=== PATIENT | female | born 1965 | race African-American/Black ===

== ENCOUNTER 2017-04-20 13:27 | Emergency (ER) | payer BC ==
[2017-04-20 13:58] VITALS: BP 175/88
[2017-04-20] MEDS ORDERED: Sodium Chloride 0.9% 10 ML Syringe FLUSH PRN (14:40)
--- NOTE | 2017-04-20 15:28 | CT ---
Head CT Technique: Multiple axial sections through the brain were obtained. Intravenous contrast was not utilized. Comparison: No prior intracranial imaging. Findings: Ventricles along with basal cisterns and sulci over the convexities are within normal limits for the patient's age. No abnormal parenchymal densities are seen. No evidence of intracranial hemorrhage. No midline shift or mass effect is seen. Bone window settings were reviewed shows the visualized sinuses to appear clear. No acute calvarial abnormality is seen. Impression: 1. Nothing acute is identified on noncontrast head CT study. Diagnostic code #1
--- NOTE | 2017-04-20 17:43 | EDM.PDOC ---
ED HPI GENERAL MEDICAL PROBLEM - General Chief Complaint: Headache Stated Complaint: SYNCOPE/HEADACHE Time Seen by Provider: 04/20/17 14:30 Source of Information: Reports: Patient History Limitations: Reports: No Limitations - History of Present Illness INITIAL COMMENTS - FREE TEXT/NARRATIVE: The patient presents with a headache and some dizziness. That started today. She also had some chest pain today. She got dizzy where the room was spinning and nearly passed out. She denies fever, chills, ear pain, fever, chills, cough , shortness of breath, abdominal pain, nausea or vomiting. Her blood pressure was high today at the clinic. It was 190s systolic. Onset: Gradual Duration: Day(s): Location: Reports: Chest Quality: Reports: Sharp Severity: Moderate Improves with: Reports: None Worsens with: Reports: None Associated Symptoms: Reports: Chest Pain, Headaches. Denies: Shortness of Breath Headache Pain Score (Numeric/FACES): 8 - Related Data Allergies Allergy/AdvReac Type Severity Reaction Status Date / Time carbamazepine [From Tegretol] Allergy Hives Verified 04/20/17 13:51 Home Meds: Home Meds Abacavir/Dolutegravir/Lamivudi [Triumeq Tablet] 1 tab PO DAILY 06/01/16 [History ] Aspirin [Halfprin] 81 mg PO DAILY 06/01/16 [History] atorvaSTATin [Lipitor] 20 mg PO BEDTIME 06/01/16 [History] Meclizine [Antivert] 25 mg PO Q6H PRN #20 tablet 04/20/17 [Rx] Past Medical History Cardiovascular History: Reports: High Cholesterol Neurological History: Reports: Migraines, Seizure Other Neuro History: facial palsy Immunologic History: Reports: HIV - Infectious Disease History Infectious Disease History: Reports: Herpes Social & Family History - Family History Family Medical History: Noncontributory - Tobacco Use Smoking Status *Q: Unknown Ever Smoked Second Hand Smoke Exposure: No - Caffeine Use Caffeine Use: Reports: None - Recreational Drug Use Recreational Drug Use: No ED ROS GENERAL - Review of Systems Review Of Systems: See Below Constitutional: Reports: No Symptoms HEENT: Reports: No Symptoms Respiratory: Reports: No Symptoms Cardiovascular: Reports: Chest Pain Endocrine: Reports: No Symptoms GI/Abdominal: Reports: No Symptoms : Reports: No Symptoms Musculoskeletal: Reports: No Symptoms - Physical Exam Exam: See Below Exam Limited By: No Limitations General Appearance: Alert, No Apparent Distress Ears: Normal External Exam, Normal Canal, Normal TMs Nose: Normal Inspection Throat/Mouth: Normal Inspection Head Exam: Atraumatic, Normocephalic Neck: Normal Inspection Respiratory/Chest: No Respiratory Distress, Lungs Clear, Normal Breath Sounds Cardiovascular: Regular Rate, Rhythm, No Edema, No Murmur GI/Abdominal: Soft, Non-Tender, No Organomegaly, No Mass Neuro Exam (Abbreviated): Alert, Oriented, No Motor/Sensory Deficits EKG INTERPRETATION EKG Date: 04/20/17 Time: 15:18 Rhythm: NSR Rate (Beats/Min): 68 [place]: Normal P-Wave: Present QRS: Normal ST-T: Other (Flipped T waves in the anterior leads) QT: Normal HI/PQ Interval: 1st degree HB Course - Vital Signs Last Recorded V/S: Last Vital Signs Temp 97.4 F 04/20/17 13:53 Pulse 76 04/20/17 13:53 Resp 16 04/20/17 13:53 BP 175/88 H 04/20/17 13:53 Pulse Ox 98 04/20/17 13:53 - Orders/Labs/Meds Orders: Active Orders 24 hr Category Date Time Status Cardiac Monitoring [RC] . DIRECTED Care 04/20/17 14:40 Active EKG Documentation Completion [RC] STAT Care 04/20/17 14:41 Active Peripheral IV Care [RC] . DIRECTED Care 04/20/17 14:41 Active Chest 1V Frontal [CR] Stat Exams 04/20/17 14:41 Taken Sodium Chloride 0.9% [Saline Flush] Med 04/20/17 14:40 Active 10 ml FLUSH ASDIRECTED PRN Peripheral IV Insertion Adult [OM.PC] Stat Oth 04/20/17 14:40 Ordered Medication Orders Sodium Chloride (Saline Flush) 10 ml FLUSH ASDIRECTED PRN PRN Reason: Keep Vein Open Last Admin: 04/20/17 15:09 Dose: 10 ml Labs: Laboratory Tests 04/20/17 04/20/17 04/20/17 Range/Units 15:15 15:15 15:15 WBC 5.52 (3.98-10.04) K/mm3 RBC 4.05 (3.98-5.22) M/mm3 Hgb 13.0 (11.2-15.7) gm/L Hct 39.3 (34.1-44.9) % MCV 97.0 H (79.4-94.8) fl MCH 32.1 (25.6-32.2) pg MCHC 33.1 (32.2-35.5) g/dl RDW Std Deviation 41.1 (36.4-46.3) fL Plt Count 254 (182-369) K/mm3 MPV 9.4 (9.4-12.3) fl Neut % (Auto) 34.2 (34.0-71.1) % Lymph % (Auto) 55.8 H (19.3-51.7) % [place] % (Auto) 8.5 (4.7-12.5) % Eos % (Auto) 1.1 (0.7-5.8) Baso % (Auto) 0.4 (0.1-1.2) % Neut # (Auto) 1.89 (1.56-6.13) K/mm3 Lymph # (Auto) 3.08 (1.18-3.74) K/mm3 [place] # (Auto) 0.47 H (0.24-0.36) K/mm3 Eos # (Auto) 0.06 (0.04-0.36) K/mm3 Baso # (Auto) 0.02 (0.01-0.08) K/mm3 D-Dimer, Quantitative < 0.19 L (0.19-0.59) mg/L Sodium 142 (136-145) mEq/L Potassium 4.1 (3.5-5.1) mEq/L Chloride 107 (98-107) mEq/L Carbon Dioxide 24 (21-32) mEq/L Anion Gap 15.1 H (5-15) BUN 13 (7-18) mg/dL Creatinine 1.0 (0.55-1.02) mg/dL Est Cr Clr Drug Dosing 52.05 mL/min Estimated GFR (MDRD) > 60 (>60) mL/min BUN/Creatinine Ratio 13.0 L (14-18) Glucose 84 (74-106) mg/dL Calcium 9.4 (8.5-10.1) mg/dL Total Bilirubin 0.3 (0.2-1.0) mg/dL AST 25 (15-37) U/L ALT 32 (14-59) U/L Alkaline Phosphatase 77 (46-116) U/L Troponin I < 0.017 (0.00-0.056) ng/mL Total Protein 8.6 H (6.4-8.2) g/dl Albumin 4.1 (3.4-5.0) g/dl Globulin 4.5 gm/dL Albumin/Globulin Ratio 0.9 L (1-2) Meds: Medications Generic Name Dose Route Start Last Admin Trade Name Freq PRN Reason Stop Dose Admin Sodium Chloride 10 ml 04/20/17 14:40 04/20/17 15:09 Saline Flush FLUSH 10 ml ASDIRECTED PRN Administration Keep Vein Open Discontinued Medications Generic Name Dose Route Start Last Admin Trade Name Freq PRN Reason Stop Dose Admin Meclizine HCl 25 mg 04/20/17 14:43 04/20/17 15:09 Antivert PO 04/20/17 14:44 25 mg ONETIME ONE Administration - Re-Assessments/Exams Free Text/Narrative Re-Assessment/Exam: 04/20/17 17:59 I ordered an IV saline lock, antivert 25mg, labs, CXR, and head CT. Her EKG shows a 1st degree HB with some inverted T waves in the anterior leads. Her CXR shows nothing acute. Her head CT looks good. Her CBC and CMP look good. Her troponin is negative. Her D-dimer is negative. She feels better. Her blood pressure is down to normal now. Departure - Departure Time of Disposition: 18:05 Disposition: Home, Self-Care 01 Condition: Good Clinical Impression: Dizziness Chest pain Qualifiers: Chest pain type: unspecified Qualified Code(s): R07.9 - Chest pain, unspecified - Discharge Information Prescriptions: Meclizine [Antivert] 25 mg PO Q6H PRN #20 tablet PRN Reason: Dizziness Referrals: PCP,None [Primary Care Provider] - Forms: ED Department Discharge Additional Instructions: Take the antivert as needed for any dizziness. Have your blood pressure checked by your doctor within 1 week. Please return if you are worse. - My Orders Last 24 Hours: My Active Orders 04/20/17 14:40 Cardiac Monitoring [RC] . DIRECTED Sodium Chloride 0.9% [Saline Flush] 10 ml FLUSH ASDIRECTED PRN Peripheral IV Insertion Adult [OM.PC] Stat 04/20/17 14:41 EKG Documentation Completion [RC] STAT Peripheral IV Care [RC] . DIRECTED Chest 1V Frontal [CR] Stat - Assessment/Plan Last 24 Hours: My Active Orders 04/20/17 14:40 Cardiac Monitoring [RC] . DIRECTED Sodium Chloride 0.9% [Saline Flush] 10 ml FLUSH ASDIRECTED PRN Peripheral IV Insertion Adult [OM.PC] Stat 04/20/17 14:41 EKG Documentation Completion [RC] STAT Peripheral IV Care [RC] . DIRECTED Chest 1V Frontal [CR] Stat
--- NOTE | 2017-04-21 10:09 | CR ---
Chest: Portable view of the chest was obtained. Comparison: No prior chest x-ray. Heart size is normal. Mild tortuosity of the thoracic aorta is seen. Lungs are clear. Bony structures are grossly intact. Impression: 1. Nothing acute is identified on portable chest x-ray. Diagnostic code #1
== END 2017-04-20 18:34 | disposition home or self-care (01) ==
LOC: JD.ED 13:27
DX: R07.9 Chest pain, unspecified (principal); R42 Dizziness and giddiness; Z79.82 Long term (current) use of aspirin; Z88.8 Allergy status to other drugs, medicaments and biological substances
CPT/HCPCS: 36415; 70450; 71010; 80053; 84484; 85025; 85379; 93005; 99285; A9270; J7050; 93010; 99284

== ENCOUNTER 2017-11-04 10:24 | Emergency (ER) | payer BC ==
[2017-11-04 10:42] VITALS: BP 123/98
[2017-11-04] MEDS ORDERED: Sodium Chloride 0.9% 10 ML Syringe FLUSH PRN (10:46)
[2017-11-04] MEDS ORDERED: LORazepam 2 MG/ML SDV IVPUSH ONE (10:59)
--- NOTE | 2017-11-04 11:05 | EDM.PDOC ---
ED HPI GENERAL MEDICAL PROBLEM - General Chief Complaint: Respiratory Problem Stated Complaint: Shortness of breath Time Seen by Provider: 11/04/17 10:50 Source of Information: Reports: Patient, Family (significant other ), RN Notes Reviewed History Limitations: Reports: Altered Mental Status - History of Present Illness INITIAL COMMENTS - FREE TEXT/NARRATIVE: 52 year old female presents to the ED via [facility], accompanied by her significant other, due to complaints of shortness of breath and hallucinations. Symptoms started last evening. Most of the history is provided by the significant other. The significant other states that the patient told him that she was holding the hand of a relative, apparently someone who several years ago. She is not upset because this person "left" her. She's very short of breath, tachypnic, and anxious. She's tearful. She has a cough which started last evening. No chest pain. She's had diarrhea but no nausea or vomiting. Her stools are loose and mucousy. Denies abdominal pain. Her reported PMH includes a heart murmur and HIV. She returned from a trip to [facility] yesterday. Her and her significant other traveled there to attend a close friend's . They were on prophylactic malaria antibiotics during their trip. The patient reportedly developed a rash to the medication but was told to continue it. No reported substance abuse. I asked the significant other if this has ever happened before and he said no. - Related Data Allergies Allergy/AdvReac Type Severity Reaction Status Date / Time carbamazepine [From Tegretol] Allergy Hives Verified 04/20/17 13:51 Home Meds: Home Meds Abacavir/Dolutegravir/Lamivudi [Triumeq Tablet] 1 tab PO DAILY 06/01/16 [History ] Aspirin [Halfprin] 81 mg PO DAILY 06/01/16 [History] atorvaSTATin [Lipitor] 20 mg PO BEDTIME 06/01/16 [History] Meclizine [Antivert] 25 mg PO Q6H PRN #20 tablet 04/20/17 [Rx] Past Medical History Cardiovascular History: Reports: High Cholesterol Neurological History: Reports: Migraines, Seizure Other Neuro History: facial palsy Immunologic History: Reports: HIV - Infectious Disease History Infectious Disease History: Reports: Herpes Social & Family History - Family History Family Medical History: Noncontributory - Caffeine Use Caffeine Use: Reports: None ED ROS GENERAL - Review of Systems Review Of Systems: See Below Constitutional: Reports: No Symptoms. Denies: Fever, Chills, Diaphoresis Respiratory: Reports: Shortness of Breath, Cough. Denies: Pleuritic Chest Pain , Sputum Cardiovascular: Reports: No Symptoms. Denies: Chest Pain GI/Abdominal: Reports: Diarrhea. Denies: Abdominal Pain, Nausea, Vomiting Skin: Reports: No Symptoms Neurological: Reports: Confusion. Denies: Headache, Syncope Psychiatric: Reports: Anxiety, Confusion ED EXAM, GENERAL - Physical Exam Exam: See Below Exam Limited By: Altered Mental Status General Appearance: Alert, WD/WN, Anxious, Other (tearful) Eye Exam: Bilateral Eye: EOMI, PERRL Head: Atraumatic, Normocephalic Neck: Normal Inspection, Supple, Non-Tender, Full Range of Motion, Other (no nuchal rigidity ) Respiratory/Chest: Lungs Clear, Chest Non-Tender, Respiratory Distress, Other ( tachypnea ). No: Rhonchi, Wheezing, Stridor Cardiovascular: Normal Peripheral Pulses, Regular Rate, Rhythm, No Edema, Tachycardia, Other (Reported murmur. Heart sounds are difficult to auscultate due to patient's increased work of breathing. ) GI/Abdominal: Normal Bowel Sounds, Soft, Non-Tender, No Distention Neurological: Alert, Confused, Other (PERRLA, upper and lower extremity strengths equal bilaterally, no facial assymetry, No slurred speech.) Psychiatric: Anxious, Tearful Skin Exam: Warm, Intact, Diaphoretic EKG INTERPRETATION EKG Date: 11/04/17 Time: 11:04 Rhythm: NSR Rate (Beats/Min): 93 [place]: Normal P-Wave: Present QRS: Normal ST-T: Normal QT: Normal Comparison: Change From Previous EKG EKG Interpretation Comments: EKG read by Dr. Molina Vaz. T wave inversions in precordial leads. No ST abnormalities. Recommends PE and ischemic workup. Course - Vital Signs Last Recorded V/S: Last Vital Signs Temp 98.3 F 11/04/17 10:34 Pulse 101 H 11/04/17 10:34 Resp 24 H 11/04/17 10:34 BP 123/98 H 11/04/17 10:34 Pulse Ox 100 11/04/17 10:34 - Orders/Labs/Meds Orders: Active Orders 24 hr Category Date Time Status EKG 12 Lead [EKG Documentation Completion] [RC] STAT Care 11/04/17 10:46 Active Peripheral IV Care [RC] . DIRECTED Care 11/04/17 10:46 Active Peripheral IV Care [RC] . DIRECTED Care 11/04/17 10:46 Active Chest 1V Frontal [CR] Stat Exams 11/04/17 10:46 Taken Head wo Cont [CT] Stat Exams 11/04/17 10:50 Taken DRUG SCREEN, URINE [URCHEM] Stat Lab 11/04/17 12:50 Ordered UA W/MICROSCOPIC [URIN] Stat Lab 11/04/17 12:50 Ordered Sodium Chloride 0.9% [Saline Flush] Med 11/04/17 10:46 Active 10 ml FLUSH ASDIRECTED PRN Peripheral IV Insertion Adult [OM.PC] Routine Oth 11/04/17 10:46 Ordered Medication Orders Sodium Chloride (Saline Flush) 10 ml FLUSH ASDIRECTED PRN PRN Reason: Keep Vein Open Last Admin: 11/04/17 11:25 Dose: 10 ml Labs: Laboratory Tests 11/04/17 11/04/17 11/04/17 Range/Units 11:20 11:20 11:20 WBC 5.23 (3.98-10.04) K/mm3 RBC 4.07 (3.98-5.22) M/mm3 Hgb 13.0 (11.2-15.7) gm/L Hct 38.6 (34.1-44.9) % MCV 94.8 (79.4-94.8) fl MCH 31.9 (25.6-32.2) pg MCHC 33.7 (32.2-35.5) g/dl RDW Std Deviation 41.1 (36.4-46.3) fL Plt Count 291 (182-369) K/mm3 MPV 9.0 L (9.4-12.3) fl Neut % (Auto) 42.9 (34.0-71.1) % Lymph % (Auto) 46.3 (19.3-51.7) % [place] % (Auto) 9.6 (4.7-12.5) % Eos % (Auto) 0.4 L (0.7-5.8) Baso % (Auto) 0.6 (0.1-1.2) % Neut # (Auto) 2.25 (1.56-6.13) K/mm3 Lymph # (Auto) 2.42 (1.18-3.74) K/mm3 [place] # (Auto) 0.50 H (0.24-0.36) K/mm3 Eos # (Auto) 0.02 L (0.04-0.36) K/mm3 Baso # (Auto) 0.03 (0.01-0.08) K/mm3 D-Dimer, Quantitative (0.19-0.50) mg/L Sodium 140 (136-145) mEq/L Potassium 3.0 L (3.5-5.1) mEq/L Chloride 101 (98-107) mEq/L Carbon Dioxide 21 (21-32) mEq/L Anion Gap 21.0 H (5-15) BUN 12 (7-18) mg/dL Creatinine 1.2 H (0.55-1.02) mg/dL Est Cr Clr Drug Dosing 43.37 mL/min Estimated GFR (MDRD) 57 (>60) mL/min BUN/Creatinine Ratio 10.0 L (14-18) Glucose 132 H (74-106) mg/dL Calcium 9.7 (8.5-10.1) mg/dL Magnesium 1.9 (1.8-2.4) mg/dl Total Bilirubin 0.6 (0.2-1.0) mg/dL AST 16 (15-37) U/L ALT 34 (14-59) U/L Alkaline Phosphatase 84 (46-116) U/L Troponin I < 0.017 (0.00-0.056) ng/mL Total Protein 8.5 H (6.4-8.2) g/dl Albumin 3.9 (3.4-5.0) g/dl Globulin 4.6 gm/dL Albumin/Globulin Ratio 0.9 L (1-2) TSH 3rd Generation 1.554 (0.358-3.74) uIU/mL Urine Color (Yellow) Urine Appearance (Clear) Urine pH (5.0-8.0) Ur Specific [place] (1.005-1.030) Urine Protein (Negative) Urine Glucose (UA) (Negative) Urine Ketones (Negative) Urine Occult Blood (Negative) Urine Nitrite (Negative) Urine Bilirubin (Negative) Urine Urobilinogen (0.2-1.0) Ur Leukocyte Esterase (Negative) Urine RBC (0-5) /hpf Urine WBC (0-5) /hpf Ur Epithelial Cells (0-5) /hpf Urine Bacteria (FEW) /hpf Urine Mucus (FEW) /hpf Salicylates 1.5 L (2.8-20) mg/dL Urine Opiates Screen (NEGATIVE) Ur Buprenorphine Scrn (NEGATIVE) Ur Oxycodone Screen (NEGATIVE) Urine Methadone Screen (NEGATIVE) Ur Propoxyphene Screen (NEGATIVE) Acetaminophen 0 L (10-30) ug/mL Ur Barbiturates Screen (NEGATIVE) Ur Tricyclics Screen (NEGATIVE) Ur Phencyclidine Scrn (NEGATIVE) Ur Amphetamine Screen (NEGATIVE) U Methamphetamines Scrn (NEGATIVE) U Benzodiazepines Scrn (NEGATIVE) U Cocaine Metab Screen (NEGATIVE) U Marijuana (THC) Screen (NEGATIVE) Ethyl Alcohol 0.00 (0.00) gm% 11/04/17 11/04/17 11/04/17 Range/Units 11:20 12:50 12:50 WBC (3.98-10.04) K/mm3 RBC (3.98-5.22) M/mm3 Hgb (11.2-15.7) gm/L Hct (34.1-44.9) % MCV (79.4-94.8) fl MCH (25.6-32.2) pg MCHC (32.2-35.5) g/dl RDW Std Deviation (36.4-46.3) fL Plt Count (182-369) K/mm3 MPV (9.4-12.3) fl Neut % (Auto) (34.0-71.1) % Lymph % (Auto) (19.3-51.7) % [place] % (Auto) (4.7-12.5) % Eos % (Auto) (0.7-5.8) Baso % (Auto) (0.1-1.2) % Neut # (Auto) (1.56-6.13) K/mm3 Lymph # (Auto) (1.18-3.74) K/mm3 [place] # (Auto) (0.24-0.36) K/mm3 Eos # (Auto) (0.04-0.36) K/mm3 Baso # (Auto) (0.01-0.08) K/mm3 D-Dimer, Quantitative 0.26 (0.19-0.50) mg/L Sodium (136-145) mEq/L Potassium (3.5-5.1) mEq/L Chloride (98-107) mEq/L Carbon Dioxide (21-32) mEq/L Anion Gap (5-15) BUN (7-18) mg/dL Creatinine (0.55-1.02) mg/dL Est Cr Clr Drug Dosing mL/min Estimated GFR (MDRD) (>60) mL/min BUN/Creatinine Ratio (14-18) Glucose (74-106) mg/dL Calcium (8.5-10.1) mg/dL Magnesium (1.8-2.4) mg/dl Total Bilirubin (0.2-1.0) mg/dL AST (15-37) U/L ALT (14-59) U/L Alkaline Phosphatase (46-116) U/L Troponin I (0.00-0.056) ng/mL Total Protein (6.4-8.2) g/dl Albumin (3.4-5.0) g/dl Globulin gm/dL Albumin/Globulin Ratio (1-2) TSH 3rd Generation (0.358-3.74) uIU/mL Urine Color Yellow (Yellow) Urine Appearance Clear (Clear) Urine pH 8.0 (5.0-8.0) Ur Specific [place] 1.015 (1.005-1.030) Urine Protein Negative (Negative) Urine Glucose (UA) Negative (Negative) Urine Ketones Negative (Negative) Urine Occult Blood Negative (Negative) Urine Nitrite Negative (Negative) Urine Bilirubin Negative (Negative) Urine Urobilinogen 0.2 (0.2-1.0) Ur Leukocyte Esterase 2+ H (Negative) Urine RBC 0-5 (0-5) /hpf Urine WBC 5-10 H (0-5) /hpf Ur Epithelial Cells 5-10 H (0-5) /hpf Urine Bacteria Occasional (FEW) /hpf Urine Mucus Not seen (FEW) /hpf Salicylates (2.8-20) mg/dL Urine Opiates Screen Negative (NEGATIVE) Ur Buprenorphine Scrn Negative (NEGATIVE) Ur Oxycodone Screen Negative (NEGATIVE) Urine Methadone Screen Negative (NEGATIVE) Ur Propoxyphene Screen Negative (NEGATIVE) Acetaminophen (10-30) ug/mL Ur Barbiturates Screen Negative (NEGATIVE) Ur Tricyclics Screen Negative (NEGATIVE) Ur Phencyclidine Scrn Negative (NEGATIVE) Ur Amphetamine Screen Negative (NEGATIVE) U Methamphetamines Scrn Negative (NEGATIVE) U Benzodiazepines Scrn Negative (NEGATIVE) U Cocaine Metab Screen Negative (NEGATIVE) U Marijuana (THC) Screen Negative (NEGATIVE) Ethyl Alcohol (0.00) gm% Meds: Medications Generic Name Dose Route Start Last Admin Trade Name Freq PRN Reason Stop Dose Admin Sodium Chloride 10 ml 11/04/17 10:46 11/04/17 11:25 Saline Flush FLUSH 10 ml ASDIRECTED PRN Administration Keep Vein Open Discontinued Medications Generic Name Dose Route Start Last Admin Trade Name Freq PRN Reason Stop Dose Admin Sodium Chloride 500 mls @ 999 mls/hr 11/04/17 13:25 Normal Saline IV 11/04/17 13:55 ONETIME ONE Lorazepam 1 mg 11/04/17 10:59 11/04/17 11:21 Ativan IVPUSH 11/04/17 11:00 1 mg ONETIME ONE Administration Potassium Chloride 40 meq 11/04/17 13:26 11/04/17 13:47 Klor-Con M20 PO 11/04/17 13:27 40 meq ONETIME ONE Administration - Re-Assessments/Exams Free Text/Narrative Re-Assessment/Exam: CBC normal. CMP reveals K 3.0, creatinine 1.2, anion gap 21. Trop and D-dimer are WNL. TSH WNL. UA is contaminated. UDS, Salicylate, and acetaminophen are negative. ETOH 0. Head CT is negative. 1 view chest x-ray is also negative for acute cardiopulmonary pathology. Patient received 1mg of IV ativan and had resolution in her symptoms. She is back to baseline and is sitting up eating. She's no longer tachypnic or tachycardic. She feels ready to go home. Discussed with Dr. Vaz who feels patient is safe for discharge. She was given 40 meq of PO Kcl. She was instructed to push fluids and f/u in the clinic next week for recheck. Discharge instructions as documented. Departure - Departure Time of Disposition: 13:40 Disposition: Home, Self-Care 01 Condition: Good Clinical Impression: Anxiety, Hallucinations - Discharge Information Instructions: Generalized Anxiety Disorder, Adult Referrals: Soraya Flores MD [Primary Care Provider] - Forms: ED Department Discharge, ED Return to Work/School Form Care Plan Goals: Return to ER with worsening or return of symptoms Drink plenty of fluids as you are dehydrated. Follow-up in our medical clinic next week for a recheck. Call [phone] to schedule an appointment
[2017-11-04 12:04] LABS: ACETAMINOPHEN 0 ug/mL (10-30)
[2017-11-04] MEDS ORDERED: Sodium Chloride 0.9% 500 ML IV ONE (13:25)
[2017-11-04] MEDS ORDERED: Potassium Chloride 20 MEQ Tab.ER PO ONE (13:26)
--- NOTE | 2017-11-08 12:16 | CR ---
Chest: Portable view of the chest was obtained. Comparison: Prior chest x-ray of 04/20/17. Heart size is normal. Tortuous thoracic aorta seen. Lungs are clear. Bony structures are grossly intact. Impression: 1. Nothing acute is seen on portable chest x-ray. Diagnostic code #2
--- NOTE | 2017-11-08 12:16 | CT ---
Head CT Technique: Multiple axial sections through the brain were obtained. Intravenous contrast was not utilized. Comparison: Prior head CT study of 04/20/17. Findings: Ventricles along with basal cisterns and sulci over the convexities are within normal limits for the patient's age. No abnormal parenchymal densities are seen. No evidence of intracranial hemorrhage. No midline shift or mass effect is seen. Bone window settings were reviewed which show nothing acute. Impression: 1. Nothing acute is seen on noncontrast head CT exam. No appreciable change is seen from previous study. Diagnostic code #1 I agree with preliminary report from [facility], finalized at 11/04/17, 12:59 PM Central Time
== END 2017-11-04 14:02 | disposition home or self-care (01) ==
LOC: JD.ED 10:24
DX: F41.9 Anxiety disorder, unspecified (principal); R44.3 Hallucinations, unspecified; Z88.8 Allergy status to other drugs, medicaments and biological substances; Z79.899 Other long term (current) drug therapy; Z79.82 Long term (current) use of aspirin; E78.00 Pure hypercholesterolemia, unspecified
CPT/HCPCS: 36415; 70450; 71045; 80053; 80306; 81001; 83735; 84443; 84484; 85025; 85379; 93005; 96374; 99285; A9270; G0480; J2060; J7050; 93010; 99283

== ENCOUNTER 2019-05-30 21:14 | Emergency (ER) | payer OTHER ==
[2019-05-30 21:25] VITALS: BP 121/81; PULSE 95
[2019-05-30] MEDS ORDERED: Lactated Ringers 1,000 ML IV ONE (22:53)
[2019-05-30] MEDS ORDERED: Ondansetron 4 MG/2 ML SDV IVPUSH ONE (22:54)
--- NOTE | 2019-05-30 22:58 | EDM.PDOC ---
ED HPI GENERAL MEDICAL PROBLEM - General Chief Complaint: Gastrointestinal Problem Stated Complaint: VOMITING DIARRHEA Time Seen by Provider: 05/30/19 22:22 Source of Information: Reports: Patient, Family () History Limitations: Reports: No Limitations - History of Present Illness INITIAL COMMENTS - FREE TEXT/NARRATIVE: Mrs. Paz is a very pleasant 54-year-old woman with a past medical history significant for dyslipidemia, diabetes, and HIV, who states that [place] 05[place]22/9019, following a two-week trip. Both the patient and her took Malarone 250/100, one tablet daily, starting 2 days prior to their departure, and continued to take it for 1 week after their return. The patient now presents to the ED stating that she developed nausea, vomiting, watery diarrhea, and upper abdominal pain, burning in character, last night. No recent fever or chills. No recent cough or dyspnea. No recent chest pain or palpitations. No prior similar symptoms. The patient's recalls that they drank some water from a fountain on one occasion, otherwise, the patient states that she drank bottled water. They prepare their own food and don't recall eating any bad tasting food. The patient 's is not similarly ill. The patient has not taken any [id number] or home remedies to treat her symptoms. She has continued to take her usual medications, including her metformin, although believes that they are going right through her. The patient ordinarily checks her blood sugar once or twice a day, with a normal range of 90-120. Her Accu-Chek this afternoon was 72. Here in the ED, the patient's vital signs are normal, with an oxygen saturation of 100% on room air. The patient's PCP is Dr. Kimberly Valle. Her Infectious Disease specialist is Dr. Soraya Flores. Upper Abdomen Pain Score (Numeric/FACES): 6 - Related Data Allergies Allergy/AdvReac Type Severity Reaction Status Date / Time carbamazepine [From Tegretol] Allergy Hives Verified 05/30/19 21:25 Home Meds: Home Meds Abacavir/Dolutegravir/Lamivudi [Triumeq Tablet] 1 tab PO DAILY 06/01/16 [History ] atorvaSTATin [Lipitor] 20 mg PO BEDTIME 06/01/16 [History] Hydrochlorothiazide [Microzide] 12.5 mg PO DAILY 01/05/19 [History] metFORMIN [Glucophage XR] 500 mg PO BID 01/05/19 [History] Ondansetron [Zofran ODT] 1 tab PO Q8H PRN #10 tab.dis 05/31/19 [Rx] Past Medical History HEENT History: Reports: Impaired Vision Cardiovascular History: Reports: High Cholesterol Endocrine/Metabolic History: Reports: Diabetes, Type II - Infectious Disease History Infectious Disease History: Reports: Herpes, HIV-Human Immunodeficiency Virus, TB (latent) - Past Surgical History GI Surgical History: Reports: EGD Musculoskeletal Surgical History: Reports: Other (See Below) (Bilateral hand trigger finger release) Social & Family History - Family History Family Medical History: Noncontributory - Tobacco Use Smoking Status *Q: Never Smoker Second Hand Smoke Exposure: No - Caffeine Use Caffeine Use: Reports: Tea - Alcohol Use Alcohol Use History: Yes Alcohol Use Frequency: Rarely - Recreational Drug Use Recreational Drug Use: No - Living Situation & Occupation Living situation: Reports: , with Spouse 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 ED EXAM, GI/ABD - Physical Exam Exam: See Below Exam Limited By: No Limitations General Appearance: Alert, WD/WN, No Apparent Distress Eyes: Bilateral: Normal Appearance, EOMI Ears: Normal External Exam, Hearing Grossly Normal Nose: Normal Inspection Throat/Mouth: Normal Inspection, Normal Lips, Normal Voice, No Airway Compromise Head: Atraumatic, Normocephalic Neck: Normal Inspection, Full Range of Motion Respiratory/Chest: No Respiratory Distress, Lungs Clear, Normal Breath Sounds, No Accessory Muscle Use Cardiovascular: Normal Peripheral Pulses, Regular Rate, Rhythm, No Edema, No Gallop, No JVD, No Murmur, No Rub GI/Abdominal Exam: Normal Bowel Sounds, Soft, No Organomegaly, No Distention, No Abnormal Bruit, No Mass, Tender (Mild, generalized, non-focal) (Female) Exam: Deferred Rectal (Female) Exam: Deferred Back Exam: Normal Inspection, Full Range of Motion, NT Extremities: Normal Inspection, Normal Range of Motion, No Pedal Edema, Normal Capillary Refill Neurological: Alert, Oriented, Normal Cognition, No Motor/Sensory Deficits Psychiatric: Normal Affect Skin Exam: Warm, Dry, Intact, Normal Color, No Rash Course - Vital Signs Last Recorded V/S: Last Vital Signs Temp 36.2 C 05/30/19 21:21 Pulse 95 05/30/19 21:21 Resp 19 05/30/19 21:21 BP 121/81 05/30/19 21:21 Pulse Ox 100 05/30/19 21:21 Orthostatic Blood Pressure [ 100/65 Standing] Orthostatic Blood Pressure [ 110/62 Sitting] Orthostatic Blood Pressure [ 105/65 Supine] - Orders/Labs/Meds Orders: Active Orders 24 hr Category Date Time Status Orthostatic Vital Signs [RC] STAT Care 05/30/19 22:48 Active Orthostatic Vital Signs [RC] STAT Care 05/30/19 23:43 Active CULTURE STOOL + SHIGATOX [RM] Stat Lab 05/30/19 23:08 Received Labs: Laboratory Tests 05/30/19 05/30/19 Range/Units 23:16 23:16 WBC 4.02 (3.98-10.04) K/mm3 RBC 4.66 (3.98-5.22) M/mm3 Hgb 15.0 D (11.2-15.7) gm/dl Hct 44.3 (34.1-44.9) % MCV 95.1 H (79.4-94.8) fl MCH 32.2 (25.6-32.2) pg MCHC 33.9 (32.2-35.5) g/dl RDW Std Deviation 41.8 (36.4-46.3) fL Plt Count 258 (182-369) K/mm3 MPV 8.5 L (9.4-12.3) fl Neutrophils % (Manual) 49 (40-60) % Band Neutrophils % 0 (0-10) % Lymphocytes % (Manual) 38 (20-40) % Atypical Lymphs % 0 % Monocytes % (Manual) 12 H (2-10) % Eosinophils % (Manual) 1 (0.7-5.8) % Basophils % (Manual) 0 L (0.1-1.2) Platelet Estimate Adequate RBC Morph Comment Normal Sodium 135 L (136-145) mEq/L Potassium 3.2 L (3.5-5.1) mEq/L Chloride 100 (98-107) mEq/L Carbon Dioxide 21 (21-32) mEq/L Anion Gap 17.2 H (5-15) BUN 12 (7-18) mg/dL Creatinine 1.2 H (0.55-1.02) mg/dL Est Cr Clr Drug Dosing 42.39 mL/min Estimated GFR (MDRD) 57 (>60) mL/min BUN/Creatinine Ratio 10.0 L (14-18) Glucose 138 H (74-106) mg/dL Calcium 8.7 (8.5-10.1) mg/dL Magnesium 2.1 (1.8-2.4) mg/dl Total Bilirubin 0.5 (0.2-1.0) mg/dL AST 45 H (15-37) U/L ALT 44 (14-59) U/L Alkaline Phosphatase 70 (46-116) U/L Total Protein 9.2 H (6.4-8.2) g/dl Albumin 4.3 (3.4-5.0) g/dl Globulin 4.9 gm/dL Albumin/Globulin Ratio 0.9 L (1-2) Lipase 90 (73-393) U/L Meds: Medications Discontinued Medications Generic Name Dose Route Start Last Admin Trade Name Freq PRN Reason Stop Dose Admin Lactated Ringer's 1,000 mls @ 999 mls/hr 05/30/19 22:53 05/30/19 23:22 Ringers, Lactated IV 05/30/19 23:53 999 mls/hr .BOLUS ONE Administration Loperamide HCl 4 mg 05/30/19 23:18 05/30/19 23:25 Imodium PO 05/30/19 23:19 4 mg ONETIME STA Administration Ondansetron HCl 4 mg 05/30/19 22:54 05/30/19 23:22 Zofran IVPUSH 05/30/19 22:55 4 mg ONETIME ONE Administration - Re-Assessments/Exams Free Text/Narrative Re-Assessment/Exam: 05/30/19 22:54 The patient is suffering from gastroenteritis. It is possible that this is related to her recent trip to [facility], i.e. travelers diarrhea, and it is also possible that it may be related to her malaria prophylaxis, although I don't know at this time what she was given. The patient's has gone home to see if he can find out the name of their medicine. In the meantime, I have ordered blood work, orthostatics, stool WBC and stool culture, and the patient will be given IV fluid and Zofran. Once she has provided a stool sample, I will order loperamide. 05/30/19 23:18 Notified by Otilia UNDERWOOD that the patient provided a stool sample, therefore I ordered 4 mg of oral loperamide. 05/30/19 23:39 The patient's brought one of the malaria prophylaxis pills to the ED. I have identified as atovaquone/proguanil 250/100 = Malarone. Malarone has a 12% incidence of nausea and vomiting, and an 8% incidence of diarrhea, therefore it is entirely possible that the patient's gastroenteritis is due to the Malarone. 05/30/19 23:44 The patient is orthostatic. She is already receiving 1 L of LR; we will recheck orthostatics after it has finished infusing. 05/31/19 00:27 The patient's repeat orthostatics are normal. The patient's CBC is unremarkable. Her CMP is remarkable for a sodium at the lower limit of normal at 135, a potassium mildly depressed at 3.2, an anion gap mildly elevated at 17.2 with a bicarbonate normal at 21, a creatinine slightly elevated at 1.2 with a normal BUN of 12, a blood glucose mildly elevated at 138, and an AST slightly elevated at 45 with a normal ALT. The remainder of her CMP is unremarkable. Her magnesium level is within normal limits at 2.1. Her lipase is within normal limits at 90. Her stool shows rare WBCs. There are 4 mEq/L of potassium in LR, not enough to normalize the patient's hypokalemia, but it may help a bit. Since she is no longer orthostatic, she does not need additional IV fluid. I will order some oral replacement potassium. She may then be discharged home with a prescription for Zofran. Loperamide is available [id number]. Departure - Departure Time of Disposition: 00:36 Disposition: Home, Self-Care 01 Condition: Good Clinical Impression: Gastroenteritis - Discharge Information *PRESCRIPTION DRUG MONITORING PROGRAM REVIEWED*: Not Applicable *COPY OF PRESCRIPTION DRUG MONITORING REPORT IN PATIENT KLEBER: Not Applicable Referrals: Kimberly Valle MD [Primary Care Provider] - Soraya Flores MD [Ordering Only Provider] - Forms: ED Department Discharge Additional Instructions: You were seen in the emergency room for vomiting, watery diarrhea, and upper abdominal pain. Workup in the ER included blood work, stool studies, and positional blood pressure checks. Your blood pressure dropped excessively between lying down and standing up, a condition known as orthostasis. You were given 1 L of IV fluid, and your orthostasis resolved. Your bloodwork found your potassium to be low at 3.2. You were given some potassium in the IV fluid, and an additional pill of potassium. The remainder of your workup was unremarkable. The cause of your gastroenteritis is not entirely clear. It may be travelers diarrhea, or may be related to the Malarone (anti-malaria medicine) that you were taking. A prescription for the anti-nausea medicine Zofran has been sent to the [facility] on [facility]. You may dissolve one tablet of Zofran on your tongue up to every 8 hours, as needed for nausea/vomiting. You may take one tablet of [id number] loperamide (Imodium AD) after each loose bowel movement, to a maximum of 8 tablets of loperamide within a 24-hour period. Stay adequately hydrated. Gatorade or Powerade are best. Avoid juice and milk, as these may make your diarrhea worse. We recommend that you eat a bland diet, such as rice or oatmeal. Chicken noodle soup with saltine crackers is an excellent choice. We recommend that you follow-up with your PCP, Dr. Kimberly Valle, within a week. If any other problems, please do not hesitate to return to the ER. Sepsis Event Note - Evaluation Sepsis Screening Result: No Definite Risk - Focused Exam Vital Signs: Vital Signs Temp Pulse Resp BP Pulse Ox 05/30/19 21:21 36.2 C 95 19 121/81 100 Date Exam was Performed: 05/31/19 Time Exam was Performed: 00:30 - My Orders Last 24 Hours: My Active Orders 05/30/19 22:48 Orthostatic Vital Signs [RC] STAT 05/30/19 23:08 CULTURE STOOL + SHIGATOX [RM] Stat 05/30/19 23:43 Orthostatic Vital Signs [RC] STAT - Assessment/Plan Last 24 Hours: My Active Orders 05/30/19 22:48 Orthostatic Vital Signs [RC] STAT 05/30/19 23:08 CULTURE STOOL + SHIGATOX [RM] Stat 05/30/19 23:43 Orthostatic Vital Signs [RC] STAT
[2019-05-30] MEDS ORDERED: Loperamide 2 MG Cap PO STA (23:18)
[2019-05-31] MEDS ORDERED: Potassium Chloride 20 MEQ Tab.ER PO ONE (00:31)
== END 2019-05-31 00:48 | disposition home or self-care (01) ==
LOC: JD.ED 21:14
DX: K52.9 Noninfective gastroenteritis and colitis, unspecified (principal); E11.9 Type 2 diabetes mellitus without complications; E78.00 Pure hypercholesterolemia, unspecified; Z21 Asymptomatic human immunodeficiency virus [HIV] infection status; Z88.8 Allergy status to other drugs, medicaments and biological substances; Z79.84 Long term (current) use of oral hypoglycemic drugs
CPT/HCPCS: 36415; 80053; 83690; 83735; 85007; 85027; 87046; 89055; 96361; 96374; 99284; A9270; J2405; J7120; 87427; 99283

== ENCOUNTER 2020-08-20 07:04 | Emergency (ER) | payer OTHER ==
[2020-08-20 07:19] VITALS: BP 167/111; PULSE 79
[2020-08-20] MEDS ORDERED: HYDROmorphone 0.5 MG/0.5 ML Syringe IVPUSH ONE (07:28)
[2020-08-20] MEDS ORDERED: Ondansetron 4 MG/2 ML SDV IVPUSH ONE (07:28)
[2020-08-20] MEDS ORDERED: Ketorolac 30 MG/ML SDV IVPUSH SCH (07:30)
[2020-08-20] MEDS ORDERED: Dextrose 5%-0.9% NaCl 1,000 ML IV SCH (07:30)
--- NOTE | 2020-08-20 07:31 | EDM.PDOC ---
<Tito Brewer - Last Filed: 08/20/20 09:08> ED HPI GENERAL MEDICAL PROBLEM - General Chief Complaint: Upper Extremity Injury/Pain Stated Complaint: LEFT SHOULDER PAIN Time Seen by Provider: 08/20/20 07:24 - Related Data Allergies Allergy/AdvReac Type Severity Reaction Status Date / Time carbamazepine [From Tegretol] Allergy Intermediate Hives Verified 08/26/20 15:22 Home Meds: Home Meds Abacavir/Dolutegravir/Lamivudi [Triumeq Tablet] 1 tab PO DAILY 06/01/16 [History] atorvaSTATin [Lipitor] 20 mg PO BEDTIME 06/01/16 [History] hydroCHLOROthiazide [Microzide] 12.5 mg PO DAILY 01/05/19 [History] metFORMIN [Glucophage XR] 500 mg PO BID 01/05/19 [History] Hydrocodone/Acetaminophen [Hydrocodone-Acetamin 5-325 mg] 1 - 2 each PO Q6HR PRN #10 tablet 08/20/20 [Rx] predniSONE [Prednisone] 40 mg PO DAILY #10 tablet 08/20/20 [Rx] Course - Re-Assessments/Exams Free Text/Narrative Re-Assessment/Exam: 08/20/20 09:[address] Adame. Her x-ray shows probable bone island within the proximal humerus. Nothing acute is appreciated. Her uric acid is normal. Her blood sugar is 120. I will get her on some prednisone and Hydrocodone for pain. Departure - Departure Time of Disposition: 09:10 Disposition: Home, Self-Care 01 Condition: Good Clinical Impression: Left shoulder pain Qualifiers: Chronicity: acute Qualified Code(s): M25.512 - Pain in left shoulder - Discharge Information *PRESCRIPTION DRUG MONITORING PROGRAM REVIEWED*: Not Applicable *COPY OF PRESCRIPTION DRUG MONITORING REPORT IN PATIENT KLEBER: Not Applicable Prescriptions: Hydrocodone/Acetaminophen [Hydrocodone-Acetamin 5-325 mg] 1 - 2 each PO Q6HR PRN #10 tablet PRN Reason: Pain predniSONE [Prednisone] 40 mg PO DAILY #10 tablet Instructions: Shoulder Pain Referrals: Kimberly Valle MD [Primary Care Provider] - Dionicio Ca MD [Physician] - 1 Week Forms: ED Department Discharge, ED Return to Work/School Form Additional Instructions: Drink plenty of fluids. Take the prednisone daily for 5 days. The prednisone may increase your blood sugar for a few days. That should go down to normal a few days after stopping the prednisone. Take tylenol as needed for pain. If that does not help, try the hydrocodone. Follow up with Dr Ca within a week. Please return if you are worse. <August Adame - Last Filed: 08/27/20 07:13> ED HPI GENERAL MEDICAL PROBLEM - General Source of Information: Reports: Patient History Limitations: Reports: No Limitations - History of Present Illness INITIAL COMMENTS - FREE TEXT/NARRATIVE: 55-year-old female presents to the ED complaining of severe left shoulder pain. She reports a fall and injury to the left shoulder 2 years ago but she states it was fairly minor and she did not think anything of it. She did not seek medical consultation or x-ray of the shoulder at that time. Over the last 24 to 30 hours she has developed severe unrelenting pain in the left shoulder with any movement causing severe worsening of the pain. No recent falls or injuries. She cannot forward flex or abduct more than 5 degrees. She has never had pseudogout or gout to her knowledge in the past. She took Tylenol overnight for pain relief but was unable to sleep at all. Patient is guarding her left shoulder by holding her left hand with her right hand on her abdomen. Patient does have a history of HIV but medications for this disease have remained the same for the last couple of years. Of note she is on hydrochlorothiazide 12.5 mg daily for blood pressure control which could cause an elevation of her blood sugar as well as her uric acid. She is on Metformin twice daily for type 2 diabetes. Onset: Sudden Onset Date: 08/19/20 Duration: Hour(s):, Getting Worse (Development left shoulder over the last 24 to 30 hours.) Location: Reports: Upper Extremity, Left (Left shoulder) Quality: Reports: Ache, Burning, Sharp, Stabbing, Other Severity: Severe (Severe pains which is sharp and stabbing if she moves her shoulder at all. 10 out of 10) Improves with: Reports: Rest Worsens with: Reports: Movement Context: Reports: Other (Olivia's occurrence without any recent trauma.). Denies: Activity, Exercise, Lifting, Sick Contact, Trauma Associated Symptoms: Reports: Weakness (Left upper extremity due to pain.). 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 Left Shoulder Pain Score (Numeric/FACES): 9 Past Medical History HEENT History: Reports: Impaired Vision Cardiovascular History: Reports: High Cholesterol, Hypertension (Is on hydrochlorothiazide 12.5 mg daily which will elevate her blood sugar and uric acid level.) Respiratory History: Reports: Other (See Below) Other Respiratory History: LATENT TB, WAS GIVEN VACCINE IN [place], NEVER BEEN ACTIVE OR SYMPTOMATIC Gastrointestinal History: Reports: Chronic Constipation Genitourinary History: Reports: None BOILER ROOM HELPER History: Reports: Other (See Below) Other BOILER ROOM HELPER History: POST MENOPAUSAL BLEEDING Musculoskeletal History: Reports: Other (See Below) Other Musculoskeletal History: BILATERAL TRIGGER FINGER RELEASE Neurological History: Reports: Migraines, Seizure Other Neuro History: facial palsy Psychiatric History: Reports: None Endocrine/Metabolic History: Reports: Diabetes, Type II (Controlled with Metformin 1 g twice daily) Hematologic History: Reports: None Immunologic History: Reports: HIV Oncologic (Cancer) History: Reports: None Dermatologic History: Reports: None - Infectious Disease History Infectious Disease History: Reports: Herpes, HIV-Human Immunodeficiency Virus, TB - Past Surgical History GI Surgical History: Reports: EGD Musculoskeletal Surgical History: Reports: Other (See Below) Other Musculoskeletal Surgeries/Procedures:: BILATERAL TRIGGER FINGER RELEASE Social & Family History - Family History Family Medical History: No Pertinent Family History - Tobacco Use Tobacco Use Status *Q: Never Tobacco User - Caffeine Use Caffeine Use: Reports: Tea - Recreational Drug Use Recreational Drug Use: No - Living Situation & Occupation Living situation: Reports: , with Spouse 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[employer]) Review of Systems - Review of Systems Review Of Systems: See Below Constitutional: Denies: Chills, Diaphoresis, Fever, Weakness, Other Eyes: Reports: No Symptoms Ears: Reports: No Symptoms Nose: Reports: No Symptoms Mouth/Throat: Reports: No Symptoms Respiratory: Reports: No Symptoms Cardiovascular: Reports: No Symptoms GI/Abdominal: Reports: No Symptoms Genitourinary: Reports: No Symptoms Musculoskeletal: Reports: Shoulder Pain (Severe unrelenting shoulder pain deve loping over the last 30 hours.) Skin: Reports: No Symptoms Neurological: Reports: No Symptoms Psychiatric: Reports: No Symptoms ED EXAM, GENERAL - Physical Exam Exam: See Below Exam Limited By: No Limitations General Appearance: Alert, WD/WN, Moderate Distress, Other (He is in a lot of pain. She is guarding her left shoulder by holding her left hand with her right hand on her abdomen. Vital signs show temperature of 36.1 degrees with a heart rate of 79 sinus respiratory 16 O2 sats 100%. BP 167 111. Elevated blood pressure presumably due to pain.) Eye Exam: Bilateral Eye: Normal Inspection (No scleral icterus or blepharal pallor.), PERRL Neck: Normal Inspection, Supple, Non-Tender, Full Range of Motion. No: Lymphadenopathy (L), Lymphadenopathy (R) Respiratory/Chest: No Respiratory Distress, Lungs Clear, Normal Breath Sounds, No Accessory Muscle Use Cardiovascular: Normal Peripheral Pulses, Regular Rate, Rhythm, No Edema, No Gallop, No Murmur, No Rub Extremities: Other (Examination of the left shoulder in comparison to the right shows it to be fairly prominent anteriorly suggesting a mild to moderate effusion of the true shoulder joint. The shoulder joint itself is not that warm to palpation. However she has no ability to forward flex or abduct the shoulder due ) Neurological: Alert, Oriented, CN II-XII Intact, Normal Cognition Psychiatric: Anxious, Other Skin Exam: Warm, Dry, Intact, Normal Color, No Rash Course - Vital Signs Last Recorded V/S: Last Vital Signs Temp 36.1 C 08/20/20 07:15 Pulse 79 08/20/20 07:15 Resp 16 08/20/20 07:15 BP 167/111 H 08/20/20 07:15 Pulse Ox 100 08/20/20 07:15 - Orders/Labs/Meds Labs: Laboratory Tests 08/20/20 08/20/20 Range/Units 07:50 07:50 WBC 5.25 (3.98-10.04) K/mm3 RBC 3.60 L (3.98-5.22) M/mm3 Hgb 11.5 D (11.2-15.7) gm/dl Hct 35.0 (34.1-44.9) % MCV 97.2 H (79.4-94.8) fl MCH 31.9 (25.6-32.2) pg MCHC 32.9 (32.2-35.5) g/dl RDW Std Deviation 42.1 (36.4-46.3) fL Plt Count 240 (182-369) K/mm3 MPV 9.5 (9.4-12.3) fl Neut % (Auto) 47.0 (34.0-71.1) % Lymph % (Auto) 44.0 (19.3-51.7) % [place] % (Auto) 8.0 (4.7-12.5) % Eos % (Auto) 0.6 L (0.7-5.8) Baso % (Auto) 0.4 (0.1-1.2) % Neut # (Auto) 2.47 (1.56-6.13) K/mm3 Lymph # (Auto) 2.31 (1.18-3.74) K/mm3 [place] # (Auto) 0.42 H (0.24-0.36) K/mm3 Eos # (Auto) 0.03 L (0.04-0.36) K/mm3 Baso # (Auto) 0.02 (0.01-0.08) K/mm3 Sodium 141 (136-145) mEq/L Potassium 3.6 (3.5-5.1) mEq/L Chloride 102 (98-107) mEq/L Carbon Dioxide 26 (21-32) mEq/L Anion Gap 16.6 H (5-15) BUN 16 (7-18) mg/dL Creatinine 1.1 H (0.55-1.02) mg/dL Est Cr Clr Drug Dosing 43.61 mL/min Estimated GFR (MDRD) > 60 (>60) mL/min BUN/Creatinine Ratio 14.5 (14-18) Glucose 120 H (74-106) mg/dL Uric Acid 6.0 (2.6-6.0) mg/dL Calcium 10.1 (8.5-10.1) mg/dL Total Bilirubin 0.3 (0.2-1.0) mg/dL AST 19 (15-37) U/L ALT 22 (14-59) U/L Alkaline Phosphatase 52 (46-116) U/L C-Reactive Protein 0.2 (<1.0) mg/dL Total Protein 8.0 (6.4-8.2) g/dl Albumin 4.0 (3.4-5.0) g/dl Globulin 4.0 gm/dL Albumin/Globulin Ratio 1.0 (1-2) Meds: Medications Discontinued Medications Generic Name Dose Route Start Last Admin Trade Name Spencer PRN Reason Stop Dose Admin Hydromorphone HCl 0.5 mg 08/20/20 07:28 08/20/20 07:52 Hydromorphone 0.5 Mg/0.5 Ml Syringe IVPUSH 08/20/20 07:29 0.5 mg ONETIME ONE Administration Dextrose/Sodium Chloride 1,000 mls @ 250 mls/hr 08/20/20 07:30 Dextrose 5%-Normal Saline IV ASDIRECTED RADHA Sodium Chloride 1,000 mls @ 250 mls/hr 08/20/20 07:45 08/20/20 08:00 Normal Saline IV 250 mls/hr ASDIRECTED RADHA Administration Ketorolac Tromethamine 30 mg 08/20/20 07:30 08/20/20 07:51 Ketorolac 30 Mg/Ml Sdv IVPUSH 30 mg ONETIME RADHA Administration Ondansetron HCl 4 mg 08/20/20 07:28 08/20/20 07:51 Ondansetron 4 Mg/2 Ml Sdv IVPUSH 08/20/20 07:29 4 mg ONETIME ONE Administration - Radiology Interpretation Free Text/Narrative:: 55-year-old female of descent presents to the ED with fairly acute onset of severe unrelenting pain in her left shoulder. She states she had remote trauma when she fell and hurt her shoulder about 2 years ago. It was not bad enough to seek medical attention at that time. Of note the patient has HIV for many years but no medications have been changed. She is a type II diabetic controlled with Metformin 1 g twice daily. She does take hydrochlorothiazide 12.5 mg once daily for hypertension which will both a elevate her blood sugar as well as a uric acid level. She denies any history of known pseudogout or gout in the past. Clinically the patient most likely has pseudogout to cause acute onset of severe pain. Plan IV will be normal saline to 50 mils per hour. She will be given Dilaudid 0.5 mg IV with Toradol 30 mg IV and Zofran 4 mg IV for pain relief and to prevent vomiting from the medication. She will then have a 3 view of her left shoulder if we can complete this. She may then benefit from a dose of steroid depending on how her blood sugars are . CBC CMP and CRP ordered. Also uric acid level ordered. - Re-Assessments/Exams Free Text/Narrative Re-Assessment/Exam: 08/20/20 08:23 White count is normal at 5.25. Differential reveals 47% neutrophils and 44% lymphocytes on the auto differential. Hemoglobin is slightly low at 11.5 with hematocrit of 35.0 MCV slightly elevated 97.2. Platelet count normal at 240,000. Three-view x-ray of the left shoulder reveals no abnormalities of the acromioclavicular joint or the humeral head. There appears to be some mild arthritic change in the anterior glenoid. Chemistry is pending. Contemplating giving her a dose of steroids if her blood sugar is well controlled. Care will be transferred to Dr. Brewer at this time. Sepsis Event Note (ED) - Evaluation Sepsis Screening Result: No Definite Risk
[2020-08-20] MEDS ORDERED: Sodium Chloride 0.9% 1,000 ML IV SCH (07:45)
--- NOTE | 2020-08-20 08:45 | CR ---
Left shoulder: 3 views of the left shoulder were obtained. Glenohumeral joint and acromioclavicular joint appear within normal limits. Sclerotic area is noted within the surgical neck of the proximal humerus most likely representing a bone island. No acute fracture, dislocation or other bony abnormality is appreciated. Impression: 1. Probable bone island within the proximal humerus. 2. Nothing acute is appreciated on left shoulder study. Diagnostic code #2
== END 2020-08-20 09:33 | disposition home or self-care (01) ==
LOC: JD.ED 07:04
DX: M25.512 Pain in left shoulder (principal); E78.00 Pure hypercholesterolemia, unspecified; I10 Essential (primary) hypertension; B20 Human immunodeficiency virus [HIV] disease; Z79.899 Other long term (current) drug therapy; Z88.8 Allergy status to other drugs, medicaments and biological substances; Z79.84 Long term (current) use of oral hypoglycemic drugs
CPT/HCPCS: 36415; 73030; 80053; 84550; 85025; 86140; 96374; 96375; 99283; J1170; J1885; J2405; J7030; 99284

== ENCOUNTER 2022-06-21 09:46 | Emergency (ER) | payer OTHER ==
[2022-06-21 10:02] VITALS: PULSE 93
[2022-06-21 10:13] VITALS: BP 154/73
[2022-06-21] MEDS ORDERED: Acetaminophen/HYDROcodone 325-5 MG Tab PO ONE (10:23)
== END 2022-06-21 12:08 | disposition home or self-care (01) ==
LOC: JD.ED 09:46
DX: S06.0X0A Concussion without loss of consciousness, initial encounter (principal); S01.111A Laceration without foreign body of right eyelid and periocular area, initial encounter; E78.00 Pure hypercholesterolemia, unspecified; I10 Essential (primary) hypertension; E11.9 Type 2 diabetes mellitus without complications; Z88.8 Allergy status to other drugs, medicaments and biological substances; Z79.84 Long term (current) use of oral hypoglycemic drugs; Z79.899 Other long term (current) drug therapy; W01.0XXA Fall on same level from slipping, tripping and stumbling without subsequent striking against object, initial encounter
CPT/HCPCS: 70450; 72125; 99283; A9270

== ENCOUNTER 2023-06-25 02:17 | Emergency (ER) | payer OTHER ==
[2023-06-25] MEDS: HYDROmorphone 1 MG/ML Syringe IVPUSH ONE (04:04)
[2023-06-25] MEDS: Metoclopramide 10 MG/2 ML SDV IVPUSH ONE (04:04)
[2023-06-25] MEDS: Dextrose 5%-Lactated Ringers 1,000 ML IV SCH (04:05)
[2023-06-25 06:07] VITALS: BP 162/71; PULSE 70
== END 2023-06-25 06:06 | disposition home or self-care (01) ==
LOC: JD.ED 02:17
DX: G43.909 Migraine, unspecified, not intractable, without status migrainosus (principal); I10 Essential (primary) hypertension; E78.00 Pure hypercholesterolemia, unspecified; E11.9 Type 2 diabetes mellitus without complications; Z79.84 Long term (current) use of oral hypoglycemic drugs; Z79.899 Other long term (current) drug therapy; Z88.8 Allergy status to other drugs, medicaments and biological substances
CPT/HCPCS: 70450; 96361; 96374; 96375; 99284; J1170; J2765; J7121; 99283

== ENCOUNTER 2025-01-31 10:17 | Emergency (ER) | payer OTHER ==
[2025-01-31] MEDS: Ondansetron 4 MG/2 ML SDV IVPUSH ONE (10:40)
[2025-01-31] MEDS: Sodium Chloride 0.9% 10 ML Syringe FLUSH PRN (10:43)
[2025-01-31 10:51] LABS: BASOPHILS ABSOLUTE AUTO 0.0 K/mm3 (0.0-0.2); BASOPHILS PERCENT AUTO 0.4 % (0.0-1.0); EOSINOPHILS ABSOLUTE AUTO 0.0 K/mm3 (0.0-0.4); EOSINOPHILS PERCENT AUTO 0.6 % (0.0-6.0); IMMATURE GRAN ABSOLUTE AUTO 0.01 K/mm3 (0.00-0.05); IMMATURE GRAN PERCENT AUTO 0.2 % (0.0-0.4); LYMPHOCYTES ABSOLUTE AUTO 2.9 K/mm3 (1.0-4.8); LYMPHOCYTES PERCENT AUTO 59.9 % (24.0-44.0); MEAN PLATELET VOLUME 8.8 fl (9.4-12.3); MONOCYTES ABSOLUTE AUTO 0.3 K/mm3 (0.0-0.8); MONOCYTES PERCENT AUTO 6.5 % (0.0-8.0); NEUTROPHILS ABSOLUTE AUTO 1.5 K/mm3 (1.8-7.7); NEUTROPHILS PERCENT AUTO 32.4 % (41.0-71.0); NRBC ABSOLUTE 0.00 (0.00-0.02); NRBC PERCENT 0.0 % (0.0-0.2); PLATELET COUNT,PLT 240 K/mm3 (150-400); RED BLOOD CELL COUNT 3.68 M/mm3 (4.10-5.30); WHITE BLOOD CELL COUNT,WBC 4.76 K/mm3 (3.9-11.3)
[2025-01-31 11:12] LABS: INR 1.01
[2025-01-31 11:14] LABS: PTT,PARTIAL THROMBOPLSTIN TIME 24.4 SECONDS (21.7-31.4)
[2025-01-31 11:18] LABS: A/G RATIO 1.0 (1-2); ALANINE AMINOTRANSFERASE,ALT 27 U/L (14-59); ASPARTATE AMNIOTRANSFERASE,AST 24 U/L (15-37); BILIRUBIN TOTAL 0.4 mg/dL (0.2-1.0); BLOOD UREA NITROGEN,BUN 12 mg/dL (7-18); CARBON DIOXIDE,CO2 25 mEq/L (21-32); CHLORIDE,CL 104 mEq/L (98-107); CREATININE 1.0 mg/dL (0.55-1.02); ESTIMATED GFR 65 mL/min (>60); GLUCOSE RANDOM 129 mg/dL (70-99); POTASSIUM,K 4.0 mEq/L (3.5-5.1); PROTEIN TOTAL,TP 7.4 g/dl (6.4-8.2); SODIUM,NA 138 mEq/L (136-145); TROPONIN I HIGH SENSITIVITY 5 pg/mL (<=51)
[2025-01-31 14:08] VITALS: BP 157/73; PULSE 80
== END 2025-01-31 16:25 ==
LOC: JD.ED 10:17
DX: I63.9 Cerebral infarction, unspecified (principal); E78.00 Pure hypercholesterolemia, unspecified; I10 Essential (primary) hypertension; E11.9 Type 2 diabetes mellitus without complications; Z88.8 Allergy status to other drugs, medicaments and biological substances; Z79.84 Long term (current) use of oral hypoglycemic drugs; Z79.899 Other long term (current) drug therapy
CPT/HCPCS: 36415; 37195; 70450; 70496; 70498; 80053; 82947; 83735; 84484; 85025; 85610; 85730; 93005; 96361; 96374; 99285; A9270; J2405; J3101; J7030